=== PATIENT | male | born 1940 | race Caucasian/White ===

== ENCOUNTER 2024-04-16 08:45 | Emergency (ER) | payer OTHER, SELFPAY ==
[2024-04-16] VITALS (7 sets, daily range): BP systolic 116–159; BP diastolic 67–77; BMI 28.0
--- NOTE | 2024-04-16 09:03 | ED.GENMED ---
History of Present Illness
General
Chief Complaint: Fainting/Passed Out
Source: patient
Exam Limitations: none
Time Seen by Provider: 04/16/24 09:02
History of Present Illness
History of Present Illness:
83-year-old male presents via EMS after syncopal episode at [facility]. Patient woke up this morning had a half a glass of orange juice walked a lap at the local park and goes to [employer] as he usually does. He was kneeling there and stood up quickly to
receive communion and was walking to receive communion started to feel lightheaded without shortness of breath. He started to feel tunnel vision. He had to kneel down and rest his head against the pew. Bystanders state that he passed out. There
is no fall from this. He notes that some decrease in his Synthroid medication. No preceding chest pain. He denies chest pain currently. He still feels somewhat woozy. No other complaints at this time
Past History
Past History
ED Past Medical History: Hypercholesterolemia and Hypothyroidism
Social History
Tobacco: Non-smoker
Alcohol: Occasional
Drug: None
Personal:
Living: with family
Phy Exam
Physical Exam
Physical Exam:
General: Well-appearing male no acute respiratory distress
HEENT: Normocephalic atraumatic
Heart: Regular rate and rhythm no murmurs lungs: Clear no wheeze
Extremities: No cyanosis or edema
Neurologic alert and oriented x 3 no facial asymmetry or slurred speech
Course
Orders/Labs/Results
Orders:
Orders
04/16/24 08:53
ECG [Electrocardiogram (*1)] Urgent
Reason for Study: Syncope
EKG- Treatment ONCE
04/16/24 09:31
Complete Blood Count/With Diff Urgent
Comprehensive Metabolic Panel Urgent
Free T4 Urgent
TSH Reflex To Free T4 Urgent
Abnormal Lab Results
04/16/24
09:31
RBC 4.36 L 10^6/uL
(4.70-6.10)
MCV 94.5 H fL
(80.0-94.0)
MCH 32.1 H pg
(27.0-31.0)
MPV 11.1 H fL
(7.4-10.4)
Abs Immat Gran (auto) 0.3 H 10^3/uL
(0-0.05)
Absolute Lymphs (auto) 3.7 H 10^3/uL
(1.2-3.4)
Absolute Monos (auto) 0.9 H 10^3/uL
(0.1-0.6)
Immature Gran % 3.0 H %
(0-0.5)
Monocytes % 9.5 H %
(1.7-9.3)
BUN 28 H mg/dl
(9-20)
Total Protein 6.2 L g/dl
(6.3-8.2)
TSH (Reflex) < 0.02 L uIU/ml
(0.47-4.68)
04/16/24 09:31
04/16/24 09:31
Vital Signs
Initial and Last Documented VS:
Initial Vital Signs
BP
126/70
04/16/24 08:50
Last Documented Vital Signs
Temp Pulse Resp BP Pulse Ox
97.5 F 48 12 159/67 100
04/16/24 09:33 04/16/24 12:00 04/16/24 12:00 04/16/24 12:00 04/16/24 12:00
MDM/Problems Addressed
Differential Diagnosis Includes:
Patient potentially had syncopal episode at [facility] today. Question orthostasis versus vasovagal versus hypoglycemia. There was a prodrome and preceding symptoms. Will keep on monitor to check for arrhythmia. Basic labs pending will hydrate.
Patient also notes a recent dose reduction in his Synthroid. He is noted to be in the upper 40s on the monitor heart rate. His blood pressure is normal.
*Critical Care Note
Total Time (30-74mins, 75-104mins- exclusive of procedures): Not Applicable
Update Note
Update Note:
Patient feeling much better after IV hydration and eating. Heart rate has been in the 50s here. Thyroid study with normal T4. I suspect vasovagal episode today. Stable for discharge will advise follow-up with cardiology
ED Attending Note
-
Portions of this chart may have been created with voice recognition software.� Occasional wrong word or��sound alike� substitutions may have occurred due to the inherent limitations of voice recognition software.
Discharge Plan
Departure
Patient Disposition: Home (Routine Discharge)
Date of Disposition: 04/16/24
Time of Disposition: 12:32
Patient with high blood pressure during this ER visit?: No
Discharge Problem:
Syncope
Instructions: Syncope (Fainting) (DC)
Prescriptions:
No Action
aspirin 81 MG tablet,delayed release (DR/EC)
81 mg PO DAILY
rosuvastatin 5 MG tablet
5 mg PO QPM
Synthroid:
1 tab PO DAILY
Referrals:
Freddie Perla MD [Active] -
Raheel Crews MD [Family Provider] -
Activity Restrictions/Additional Instructions:
Stay hydrated. Return for worsening symptoms otherwise consider following with cardiology for further eval
Interventions
Interventions:
*Risk Screen - Suicide Last Done: 04/16/24 12:28
*General Assessment Last Done: 04/16/24 12:22
*Neglect/Abuse Screening Last Done: 04/16/24 12:22
*ED COVID-19 Vaccine History Last Done: 04/16/24 12:22
ED- Cardiac Assessment Last Done: 04/16/24 12:18
ED- Neurological Assessment Last Done: 04/16/24 09:07
Discharge Date and Time
Print Language: PAKISTANI
[2024-04-16 09:08] LABS: Glucose - Point of Care 83 mg/dl (70-99)
[2024-04-16 09:48] LABS: % Basophils 0.4 % (0-2); % Eosinophils 0.6 % (0-6); % Lymphocytes 38.5 % (20.5-51.1); % Monocytes 9.5 % (1.7-9.3); Absolute Eosinophils 0.1 10^3/uL (0-0.7); Absolute Immature Granulocytes 0.3 10^3/uL (0-0.05); Absolute Lymphocytes 3.7 10^3/uL (1.2-3.4); Absolute Monocytes 0.9 10^3/uL (0.1-0.6); Absolute Neutrophils 4.6 10^3/uL (1.4-6.5); Hematocrit 41.2 % (39.0-52.0); Mean Corpuscular Hgb 32.1 pg (27.0-31.0); Mean Corpuscular Volume 94.5 fL (80.0-94.0); Mean Platelet Volume 11.1 fL (7.4-10.4); Nucleated Red Blood Cells % 0 % (-); Platelet Count 280 10^3/uL (130-400); Red Blood Cell Count 4.36 10^6/uL (4.70-6.10); Red Cell Dist. Width 12.7 % (11.5-14.5); White Blood Cell Count 9.6 10^3/uL (4.8-10.8)
[2024-04-16 10:04] LABS: ALT (SGPT) 47 U/L (0-50); AST (SGOT) 34 U/L (17-59); Albumin 4.1 g/dl (3.5-5.0); Alkaline Phosphatase 64 U/L (38-126); Blood Urea Nitrogen 28 mg/dl (9-20); Calcium 9.8 mg/dl (8.4-10.2); Carbon Dioxide 27 mmol/L (22-30); Chloride 105 mmol/L (98-107); Estimated Creatinine Clearance 40 ml/min; Glucose 97 mg/dl (70-99); Sodium 142 mmol/L (135-145); Total Bilirubin 1.1 mg/dl (0.2-1.3); Total Protein 6.2 g/dl (6.3-8.2); eGFR 54.17
[2024-04-16 10:32] LABS: TSH Reflex To Free T4 < 0.02 uIU/ml (0.47-4.68)
[2024-04-16 12:03] LABS: Free T4 1.83 ng/dl (0.78-2.19)
== END 2024-04-16 13:42 | disposition home or self-care (01) ==
LOC: EMR 08:45
PROVIDERS: Physician Assistant; EMERGENCY PHYSICIAN Emergency Medicine; FAMILY PHYSICIAN Internal Medicine
DX: R55 Syncope and collapse (principal); E78.00 Pure hypercholesterolemia, unspecified; E03.9 Hypothyroidism, unspecified; Z79.899 Other long term (current) drug therapy
CPT/HCPCS: 99283; 80053; 82962; 84439; 84443; 85025; 93005

== ENCOUNTER 2024-09-29 09:08 | Day surgery (SDC) | payer OTHER, SELFPAY ==
[2024-09-29] VITALS (7 sets, daily range): BP systolic 123–148; BP diastolic 66–80; BMI 29.7
[2024-09-29 09:59] LABS: INR 0.97; PT 13.4 Sec (11.4-14.6)
[2024-09-29 10:00] LABS: APTT 32.3 Sec (23.4-35.0)
[2024-09-29 10:02] LABS: Blood Urea Nitrogen 38 mg/dl (9-20); Carbon Dioxide 23 mmol/L (22-30); Chloride 101 mmol/L (98-107); Estimated Creatinine Clearance 30 ml/min; Glucose 116 mg/dl (70-99); Sodium 138 mmol/L (135-145); eGFR 36.43
[2024-09-29] MEDS: PERIDEX 0.12% ORAL RINSE 15 ML PO (10:35)
[2024-09-29] MEDS: BACTROBAN NASAL 1 GRAM NASAL (10:35)
[2024-09-29] MEDS: NSS 500 IV (10:35)
[2024-09-29 10:57] LABS: Hematocrit 32.5 % (39.0-52.0); Hemoglobin 11.3 g/dL (13.0-18.0); Mean Corp Hgb Conc. 34.8 g/dL (33.0-37.0); Mean Corpuscular Hgb 32.5 pg (27.0-31.0); Mean Corpuscular Volume 93.4 fL (80.0-94.0); Mean Platelet Volume 9.8 fL (7.4-10.4); Platelet Count 485 10^3/uL (130-400); Red Blood Cell Count 3.48 10^6/uL (4.70-6.10); Red Cell Dist. Width 12.3 % (11.5-14.5); White Blood Cell Count 22.4 10^3/uL (4.8-10.8)
--- NOTE | 2024-09-29 13:32 | W.SUR.PREOP ---
Pre-Operative Surgical Note
-
I have examined this patient prior to the performance of the scheduled procedure.
The patient's condition is unchanged from the time of the current History and
Physical and the patient is able to undergo the scheduled procedure.
Discussed with the patient fully procedure of temporal artery biopsy (bilateral). Discussed anticipated recovery/outcomes. Discussed my limited role as a mail carrier technician in terms of obtaining tissue for biopsy results. Discussed that I defer to the
primary care team or rheumatology team regarding definitive management in the pathologist for the diagnosis. Discussed risks of procedure including but not limited to bleeding, infection, nerve injury. He understands all wishes to proceed.
--- NOTE | 2024-09-29 14:35 | W.SUR.POST ---
Surgical Immediate Post Op
Note
Pre Op Diagnosis: Rule out temporal arteritis
Post Op Diagnosis: Rule out temporal arteritis
Procedure Performed: Bilateral temporal artery biopsy
Primary Surgeon: Modesto Perez MD
Assist: LIVIER Holland
Anesthesia: MAC
Estimated Blood Loss: 2 mL
Fluids: See anesthesia flowsheet
Drains/Shunts: N/A
Specimens/Cultures: Bilateral temporal artery
Doppler/Duplex/Angio (Y/N): None
Complications: None
Operative Findings: Successful temporal artery biopsy
--- NOTE | 2024-09-29 15:37 | OR.RPT ---
Operative Report
Operative Report
PROCEDURE DATE: 09/29/2024
Preoperative diagnosis: Temporal arteritis
Postoperative diagnosis: Same
Procedure: Bilateral temporal artery biopsy
Surgeon: Chris
Graduate Engineer: NISH Marcano, required for all aspects of procedure including assistance with traction/countertraction, assistance with closure.
Complications: None
Anesthesia: Local, sedation
Indications for procedure:
Concern for temporal arteritis and therefore referred for temporal artery biopsy. Risk/benefits/alternatives of the procedure were fully discussed. Patient understood all wished to proceed.
Description of procedure:
Patient was identified brought to the operating room placed on the table in supine position. After the adequate administration of anesthesia and perioperative antibiotics he was prepped and draped in the standard surgical fashion. A standard
preoperative timeout was undertaken and everybody was in agreement the plan. A longitudinal incision was made in the scalp just anterior and superior to the superiormost aspect of the pinna of the right ear (overlying the palpable pulsation of the
artery) after infiltration of the skin and subcutaneous tissue with 1% lidocaine. This was carried down through the subcutaneous layer and the fascia layer with electrocautery. The superficial temporal artery was identified. It was mobilized
using sharp dissection. It was noted to be fairly tortuous and may be mildly thickened. It was then ligated proximally and distally as well as a branch ligated all with silk ties and a clip. I then transected the artery. This was then sent for
specimen.
A similar incision was made in the left scalp just anterior and superior to the superiormost aspect of the pinna of the left ear (overlying the palpable pulsation of the artery) after infiltration of the skin and subcutaneous tissue with 1%
lidocaine. Similarly this was carried down through the subcutaneous tissue and fascial layer with the electrocautery. The superficial temporal artery was identified and was mobilized using sharp dissection. It was noted to be significantly
tortuous. It was then ligated proximally and distally as well as a branch ligated all with silk ties and a clip. I then transected the artery. This was then sent for specimen.
Both incision sites were then irrigated. Hemostasis was achieved and confirmed. We then closed in layers using 3-0 Vicryl deep dermal layer followed by 4-0 Monocryl subcuticular running layer (this was completed bilaterally). Dermabond was then
applied bilaterally. Patient tolerated procedure well.
== END 2024-09-29 16:16 | disposition home or self-care (01) ==
LOC: CATH 09:08
PROVIDERS: ATTENDING PHYSICIAN Surgery Vascular Surgery; FAMILY PHYSICIAN Internal Medicine; OTHER PHYSICIAN Internal Medicine
DX: R51.9 Headache, unspecified (principal); Z79.890 Hormone replacement therapy; Z79.52 Long term (current) use of systemic steroids; Z79.899 Other long term (current) drug therapy
CPT/HCPCS: 37609; 88305; 80048; 85027; 85610; 85730; 86850; 86900; 86901; 88313; 93005

== ENCOUNTER → 2024-11-16 08:54 | Outpatient (REF) | payer OTHER, SELFPAY | LOC: RAD 08:54 | PROVIDERS: ATTENDING PHYSICIAN Physician Assistant; FAMILY PHYSICIAN Internal Medicine | DX: Z13.820 Encounter for screening for osteoporosis (principal); M81.0 Age-related osteoporosis without current pathological fracture | CPT/HCPCS: 77080 ==